=== PATIENT | male | born 2000 ===

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

== ENCOUNTER 2022-07-20 09:00 | Emergency (ER) | payer SELFPAY ==
[~2022-07-20] VITALS: Ht 193 cm; Wt 99.8 kg
== END 2022-07-20 11:09 | disposition left against medical advice (07) ==
LOC: ER 09:00
DX: S09.90XA Unspecified injury of head, initial encounter (principal); S20.211A Contusion of right front wall of thorax, initial encounter; S30.1XXA Contusion of abdominal wall, initial encounter; I10 Essential (primary) hypertension; F17.210 Nicotine dependence, cigarettes, uncomplicated; Z53.21 Procedure and treatment not carried out due to patient leaving prior to being seen by health care provider; Z88.0 Allergy status to penicillin; Z88.6 Allergy status to analgesic agent; Z88.5 Allergy status to narcotic agent; Z79.899 Other long term (current) drug therapy; V59.49XA Driver of pick-up truck or van injured in collision with other motor vehicles in traffic accident, initial encounter
CPT/HCPCS: 71046; 74177; 93005; 93010; J1885; Q9967

== ENCOUNTER 2022-07-20 19:43 | Emergency (ER) | payer OTHER ==
[~2022-07-20] VITALS: Ht 182.9 cm; Wt 90.7 kg
== END 2022-07-20 20:23 ==
LOC: ER 19:43
DX: Z04.1 Encounter for examination and observation following transport accident (principal); Z79.899 Other long term (current) drug therapy
CPT/HCPCS: 99284